=== PATIENT | male | born 1955 | race Caucasian/White ===

== ENCOUNTER 2016-11-21 09:26 | Day surgery (SDC) | payer BC ==
--- NOTE | 2016-11-14 19:27 | HP ---
PREOPERATIVE HISTORY AND PHYSICAL: DATE OF ADMISSION/SURGERY: 11/21/16 DATE OF OFFICE VISIT: 11/13/16 ATTENDING SURGEON: Eliezer Faith MD (DICTATED BY JARED BAHENA) PROCEDURE: Left elbow removal of hardware. CHIEF COMPLAINT: Left elbow pain. HISTORY OF PRESENT ILLNESS: Mr. Clinton is a 61-year-old male status post left ORIF of the olecranon. The patient has pain with pushups and with certain activities due to symptomatic hardware. He failed conservative measures, therefore agreed to undergo a left elbow removal of hardware by Dr. Faith on . PAST MEDICAL HISTORY: 1. Coronary artery disease. 2. Hyperlipidemia. 3. Hypertension. 4. Peripheral vascular disease. 5. Osteoarthritis. PAST SURGICAL HISTORY: 1. CABG. 2. Left elbow ORIF. Denies prior complications with anesthesia. MEDICATIONS: 1. Crestor 5 mg 1 tablet 3 days a week. 2. Multivitamin 1 capsule daily. 3. Aspirin 81 mg 1 by mouth daily. 4. 220 mg 1 by mouth daily. 5. Tylenol extra strength 500 mg 2 by mouth as needed. ALLERGIES: No known drug allergies. FAMILY HISTORY: Positive for cancer. SOCIAL HISTORY: He lives with his spouse. He is a former smoker, quit in 2012. He denies alcohol use. REVIEW OF SYSTEMS: General: Negative for fever, chills, or night sweats. No known anesthesia problems. HEENT: Negative for headache, lightheadedness, or syncopal episodes. Integumentary: Negative for abrasions, lesions, or open wounds. Cardiothoracic: Negative for chest pain, palpitations, or edema. Positive for hypertension. Pulmonary: Negative for shortness of breath with exertion, chronic cough, or COPD. GI: Negative for nausea, vomiting, diarrhea , constipation, or GERD. : Negative for nocturia, urinary frequency, history of UTIs, or kidney problems. Musculoskeletal: Positive for left elbow pain. Neuro: Positive for numbness and tingling in his left thumb. Denies history of seizure, stroke, or epilepsy. Endocrine: Negative for diabetes or thyroid issues. Heme: Negative for easy bruising, anemia, bleeding disorder, history of DVT or PE. Infectious Disease: Negative history of MRSA, hep C, or HIV. PHYSICAL EXAMINATION GENERAL: Well-developed, well-nourished 61-year-old male in no acute distress. Alert and oriented x3. Appropriate mood and affect. VITAL SIGNS: Height 69, weight 170. Pulse 64, Blood pressure 130/80, respiratory rate 14, temperature 96.7, BMI 25.1. HEENT: Normocephalic, atraumatic. PERRLA. NECK: Supple. Throat clear. PULMONARY: Lungs clear to auscultation bilaterally. No wheezing, rhonchi, or rales. CARDIO: Regular rate and rhythm. S1 and S2. No murmurs, gallops, or rubs. No edema. ABDOMEN: Positive bowel sounds. Soft and nontender. NEURO: Alert and oriented x3. Cranial nerves grossly intact. Sensation intact to light touch. MUSCULOSKELETAL: Left upper extremity: Well-healed surgical incision. There is small bursitis distal to the plate. Mildly tender over the plate. Full range of motion, . +2 dorsalis pedis and posterior radial pulse. Sensation intact to light touch distally. DIAGNOSTIC STUDIES: Multiple view x-rays of the left elbow reveal evidence of hardware with no acute fracture or changes in alignment. IMPRESSION: Left elbow symptomatic hardware. PLAN: The patient is scheduled to undergo a left elbow removal of hardware with Dr. Faith on 11/21/16. He will return to the office 10-14 days postop for followup and suture removal. Percocet will be used for postop pain management. JARED BAHENA [id number]/[facility] #: [id number] MTDRashard
[~2016-11-21 09:26] MED LIST: Buffered Lidocaine 0.9% SYRIN* 5 ML/SYR SYRINGE INTRADERM ONE; Buffered Lidocaine 0.9% SYRIN* 5 ML/SYR SYRINGE ONE; Famotidine IV* 10 MG/ML 2 ML (20 mg) IV ONE; Famotidine IV* 10 MG/ML 2 ML (20 mg) ONE; KETAMINE HCL* 50 MG/ML 10 ML VIAL ONE; Midazolam* 1 MG/ML 5 ML VIAL (5 MG) ONE; Morphine INJ* 2 MG/ML 1 ML SYRINGE IV PRN; PROCHLORPERAZINE INJ 5 MG/ML 2 ML VIAL IV PRN; ceFAZolin 2 GM PREMIX(*) 2 GM/50 ML BAG IVPB ONE; fentaNYL* 50 MCG/ML 2 ML VIAL (100 MCG VIAL) IV PRN; fentaNYL* 50 MCG/ML 2 ML VIAL (100 MCG VIAL) ONE; oxyCODONE/Acetamin 5/325 MG* TAB PO PRN
[2016-11-21] MEDS ORDERED: Propofol* 10 MG/ML 20 ML BTL IV PUSH ONE (11:31)
[2016-11-21] MEDS ORDERED: Ondansetron INJ* 2 MG/ML VIAL ONE (11:31)
[2016-11-21] MEDS ORDERED: PROCHLORPERAZINE INJ 5 MG/ML 2 ML VIAL ONE (11:31)
[2016-11-21] MEDS ORDERED: Dexamethasone IV* 4 MG/ML 1 ML (4 MG) ONE (11:31)
[2016-11-21] MEDS ORDERED: Lidocaine 2% PF * 5 ML VIAL ONE (11:31)
[2016-11-21] MEDS ORDERED: Bupivacaine 0.25% SDV* 30 ML ONE (11:35)
[2016-11-21] MEDS ORDERED: Ketorolac INJ* 30 MG/ML 1 ML VIAL ONE (12:29)
[2016-11-21 14:02] VITALS: BP 115/73
--- NOTE | 2016-11-21 20:37 | RAD ---
INDICATION: Left elbow removal of hardware COMPARISON: None FINDINGS: 15 seconds of fluoroscopy were provided for the orthopedics department. Fluoroscopic spot imaging of the left elbow were obtained for operative control. CPT II Codes: 6045F (fluoro time doc)
--- NOTE | 2016-11-22 08:37 | OP ---
OPERATIVE REPORT: DATE OF OPERATION: 11/21/16 DATE OF : 53 SURGEON: Eliezer Faith MD. NET DEVELOPER CONSULTANT: JARED Smith An medical receptionist assistant was needed for the entirety of this case to help with positioning, retraction, and was utilized throughout all portions of the case. ANESTHESIOLOGIST: Dr. Rodriguez. ANESTHESIA: General. PRE-OP DIAGNOSIS: Left elbow symptomatic hardware. POST-OP DIAGNOSIS: Left elbow symptomatic hardware. OPERATIVE PROCEDURE: Left elbow removal of hardware. INDICATIONS: Hebert Clinton is a 61-year-old male who sustained an olecranon fracture in October 2015. He underwent an open reduction internal fixation of his elbow at that time. He did very well after surgery, but he continued to have symptoms with the plate and he had some impingement with full extension. After extensive discussion of risks and benefits and x-rays confirming healing, we elected to proceed with removal of hardware. Risks were discussed included but are not limited to bleeding, infection, damage to nerves, vessels, surrounding structures, the wound not healing, persistent pain, need for further surgery, stiffness, fracture, risk of anesthesia, risk of DVT. He has elected to proceed. COMPLICATIONS: One screw broke during removal and is embedded into the bone. TOURNIQUET TIME: 60 minutes at 250 mmHg. ESTIMATED BLOOD LOSS: Minimal. DESCRIPTION OF PROCEDURE: The patient was greeted in the preoperative area by the attending surgeon. Correct extremity was marked and consent was confirmed. The patient was brought back to the operating suite where he was placed in supine position on the operating table. He then underwent general anesthesia with LMA intubation, after which a non-sterile tourniquet was placed high on the proximal arm. The left arm was prepped and draped in the usual sterile fashion, beginning with chlorhexidine soap, scrub, alcohol wipe, and a final prep with ChloraPrep. After appropriate surgical pause indicating side, site, procedure, administration of antibiotics, the Esmarch was used to exsanguinate the limb and the tourniquet was inflated to 250 mmHg. The previous incision was opened up again with 15-blade, and the soft tissue was carefully dissected to expose the plate, which was readily available. First, the distal screws were removed very carefully all in one piece then proximally the locking screws were removed. The home-run screw was the last one to be removed and the screw had broke off. The plate was still able to be loosened and removed and was removed. The broken screw removal set was then brought to the table. Because of the position of the screw, a decision was made to try to remove the screw as it was slightly prominent. In spite of broken screw removal set and different devices and then drilling around the screw to allow for more purchase, the screw was still difficult to obtain. Finally, a broken screw removal device was screwed on to the screw and as this was being removed, it broke yet again, but due to it buried into the bone a decision was made to leave it. Final images were obtained to confirm our removal of hardware. The plates were sent to the lab for clean up and the patient will take this home. The wounds were copiously irrigated with sterile saline. A 2-0 Ti-Cron was used to close the triceps fascia. A 2-0 Vicryl was used to reapproximate the fascia and for the subcutaneous layer, the skin was closed with 3-0 nylon. Sterile dressings were applied. The wound was superficially injected with 0.25% Marcaine plain. He was placed in a well-padded posterior splint. He was awoken from anesthesia and transferred to PACU in stable condition. POSTOPERATIVE PLAN: He will be allowed range of motion as tolerated. We will protect him in a splint until Saturday, and he can take it off and start taking showers if there is no drainage. He will be allowed to work on range of motion as soon as the splint is removed. He will be discharged on pain medications as well as antibiotics. I will see the patient back in about 10 days. DVT prophylaxis was considered, but deferred due to no previous personal or family history. I will see the patient back in 10 days. [id number]/[facility] #: [id number] [facility]ENT[facility]ashard
== END 2016-11-21 14:26 | disposition home or self-care (01) ==
LOC: OR 09:26
PROVIDERS: ATTEND Orthopaedic Surgery
DX: T84.84XA Pain due to internal orthopedic prosthetic devices, implants and grafts, initial encounter (principal)
CPT/HCPCS: 76000; 88300; J0690; J0780; J1100; J1885; J2250; J2405; J2704; J3010